=== PATIENT | male | born 1955 | race Caucasian/White ===

== ENCOUNTER 2021-02-09 13:49 | Emergency (ER) | payer MEDICARE, OTHER, MEDICAID, SELFPAY ==
[2021-02-09] VITALS (19 sets, daily range): BP systolic 138–154; BP diastolic 79–98; PULSE 61–100; RESP 12–39; TEMP 36.9; O2SAT 97–100; BMI 21.9
--- NOTE | 2021-02-09 14:07 | DI.RAD.S_ITS ---
PROCEDURE: XR CHEST 1V INDICATIONS: failure TECHNIQUE: One view of the chest was acquired. COMPARISON: [facility], , CHEST 2 VIEW, 06/21/2016, 9:46. FINDINGS: Exam is extremely limited given patient positioning. Surgical changes and devices: Postsurgical changes of multiple right-sided ribs. Overlying EKG wires Lungs and pleura: There is slight hypoinflation. Within limits of this exam there is no focal consolidation, pneumothorax, or pleural effusion. Bibasilar atelectasis. Mediastinum: Mediastinal contours appear normal. Heart size is normal. Bones and chest wall: No suspicious bony lesions. Postsurgical changes of the ribs along with multiple remote right-sided rib fractures. Overlying soft tissues appear unremarkable. IMPRESSION: Limited exam. Basilar atelectasis with low lung volumes within limits of this exam. Dictated by: Oni Contreras D.O. on 02/09/2021 at 13:25 Approved by: Oni Contreras D.O. on 02/09/2021 at 13:27
--- NOTE | 2021-02-09 14:22 | DI.CT.S_ITS ---
PROCEDURE: CT HEAD/BRAIN WO CON INDICATIONS: fall Thursday TECHNIQUE: Noncontrast 4.5 mm thick angled axial sections acquired from the foramen magnum to the vertex, with coronal and sagittal reformats. For radiation dose reduction, the following was used: automated exposure control, adjustment of mA and/or kV according to patient size. COMPARISON: [facility], CT, CT CERVICAL SPINE WO CON, 02/09/2021, 14:27. [facility], CT, CT HEAD WITHOUT CONTRAST, 04/05/2018, 10:15. [facility], CT, CT CERVICAL SPINE WITHOUT CONTRAST, 04/05/2018, 10:15. [facility], CT, HEAD WITHOUT CONTRAST, 01/14/2008, 22:38. FINDINGS: Image quality: Excellent. CSF spaces: Basal cisterns are patent. No extra-axial fluid collections. The ventricles are symmetric in size and shape. Brain: No intracranial bleeds or masses. There is cerebral volume loss for age, with resultant ventricular and sulcal prominence. There are periventricular and deep white matter chronic small vessel ischemic changes. There is intracranial internal carotid artery atherosclerosis. Skull and face: Calvarium and visualized facial bones appear intact, without suspicious lesions. Sinuses: Mild mucosal thickening in the maxillary sinuses with polyp versus mucous retention cysts of the right maxillary sinus. Fracture of C1 is incompletely noted on this examination. IMPRESSION: Findings most consistent with cerebral volume loss and cycle of microvascular ischemic changes without evidence of an acute intracranial hemorrhage or transcortical infarction. C1 fracture incompletely evaluated on this examination. Please see same-day CT cervical spine for findings. Dictated by: Oni Contreras D.O. on 02/09/2021 at 14:00 Approved by: Oni Contreras D.O. on 02/09/2021 at 14:04
--- NOTE | 2021-02-09 14:22 | DI.CT.S_ITS ---
PROCEDURE: CT CERVICAL SPINE WO CON INDICATIONS: fall Thursday TECHNIQUE: Noncontrast 3 mm thick sections acquired from the skull base to the T4 level. Sagittal and coronal reformats were then constructed. For radiation dose reduction, the following was used: automated exposure control, adjustment of mA and/or kV according to patient size. COMPARISON: [facility], CT, C-SPINE WITHOUT CONTRAST, 01/14/2008, 22:39. [facility], CT, CT CERVICAL SPINE WITHOUT CONTRAST, 04/05/2018, 10:15. FINDINGS: Image quality: Somewhat limited given positioning of patient. Bones: There is fracturing of the atlas. This includes fractures through the anterior and posterior arch. There is lateral displacement of the right side of the arch by approximately 9 millimeters. The left arch is intact. In addition there is a minimally displaced right condylar fracture. The atlantoaxial interval remains within normal limits. Mildly displaced transverse process fractures of the left transverse processes of C7, T1, T2, and T3. Minimally displaced fracture of the posterior 1st rib as well as the lateral aspect of the left 3rd rib. Multiple remote right-sided rib fractures. Multilevel degenerative changes of the cervical spine are noted throughout worse at C5-C6 and C6-C7 where there is at least mild spinal canal stenosis and mild to moderate neural foraminal stenosis at these levels. Soft tissues: Prevertebral soft tissues are normal in thickness. No paravertebral hematomas. No apical pneumothoraces. Small bilateral pleural effusions. IMPRESSION: Displaced fracturing of the atlas (Jaylen Burst) with displaced fractures of the anterior and posterior arch. There is approximately 9 millimeters of lateral displacement. The atlantoaxial interval is maintained. Mildly displaced fracture of the right occipital condyle (Type 1). Recommend neuro surgical evaluation. Mildly displaced transverse process fractures on the left from C7 through T3. Mildly displaced posterior rib fractures of the 1st rib on the left as well as the lateral aspect of the left 3rd rib. Consider dedicated CTA of the chest to exclude internal injury. Findings discussed with the ordering provider Dr. Abhinav Macias by Dr. Oni Contreras at approximately 1410 hours [place] Standard time on 02/09/2021. Dictated by: Oni Contreras D.O. on 02/09/2021 at 14:04 Approved by: Oni Contreras D.O. on 02/09/2021 at 14:21
--- NOTE | 2021-02-09 14:28 | ED_ITS ---
HPI - Weakness General Chief complaint: Fall Stated complaint: Failure to thrive, fall Time Seen by Provider: 02/09/21 14:06 Source: patient and EMS Mode of arrival: EMS Limitations: no limitations History of Present Illness HPI Narrative: 65M smoker with history of alcohol abuse and SVT present by EMS after multiple days of weakness. He suffered a ground level fall a few days ago (exact date is a bit unclear) and struck his forehead and developed some neck pain. Since then he has been rather immobile at home and per people who live with him has not been eating or drinking and has become weak. His living sit uation is tenuous and medics report a very unkempt location with no ability for the patient to receive any additional help. He denies any loss of consciousness, nausea or vomiting. He does not take any blood thinners. Patient activated as modified trauma due to fall > 65 and suspected injury. Patient is otherwise well and free of complaint. He denies any precipitating dizziness, weakness or lightheadedness. He denies any blurred vision, numbness, tingling or weakness. He has no trouble controlling bowel or bladder. Related Data Home Medications Medication Instructions Recorded Confirmed No Known Home Medications 02/09/21 02/09/21 Allergies Allergy/AdvReac Type Severity Reaction Status Date / Time No Known Drug Allergies Allergy Verified 02/09/21 16:11 Review of Systems Constitutional Constitutional: Denies chills, Denies fatigue, Denies fever(s), Denies frequent falls, Denies lethargy and Reports weakness Eyes Eyes: Denies change in vision, Denies eye discharge, Denies irritation and Denies loss of vision ENT Ears, Nose, Mouth, and Throat: Denies change in voice, Denies dizziness, Reports neck pain, Denies sore throat and Denies throat swelling Cardiovascular Cardiovascular: Denies chest pain, Denies irregular heart rhythm, Denies lightheadedness, Denies palpitations, Denies dyspnea, Denies dyspnea on exertion and Denies orthopnea Respiratory Respiratory: Denies cough, Denies dyspnea, Denies dyspnea on exertion and Denies wheezing Gastrointestinal Gastrointestinal: Denies abdominal pain, Denies change in bowel habits, Denies diarrhea, Denies nausea and Denies vomiting Musculoskeletal Musculoskeletal: Reports neck pain and Denies numbness Integumentary/Breasts Skin/Breast: Denies pruritus, Denies erythema, Denies rash and Denies wounds Neurologic Neurologic: Denies behavioral changes, Denies confusion, Denies dizziness, Denies frequent falls, Denies loss of vision, Denies numbness and Reports weakness Psychiatric Psychiatric: Denies anxiety, Denies behavioral changes, Denies confusion, Denies depression, Denies homicidal ideation and Denies suicidal ideation Endocrine Endocrine: Denies fatigue, Denies flushing and Denies palpitations Hematologic/Lymphatic Hematologic/Lymphatic: Denies easy bruising Allergic/Immunologic Allergic/Immunologic: Denies urticaria, Denies throat swelling and Denies wheezing Patient History Social History Smoking Status: Current every day smoker Smoking Status: Current every day smoker alcohol intake frequency: a few times a week Substance Use Type: does not use Exam Narrative Exam Narrative: GENERAL: [65] year old patient appears stated age. Well- nourished, well-developed patient, in mild distress. GCS 15 HEAD: Superficial, healing laceration mid forehead at the hairline. No evidence of depressed skull fracture EYES: Pupils equal round and reactive. No hyphema, extraoccular motions intact. No scleral icterus. No injection or drainage. ENT: Nose without bleeding, purulent drainage. Throat without erythema, tonsillar hypertrophy or exudate. Airway patent. NECK: Trachea midline. Midline neck pain and tenderness upper cervical spine, no step-offs or crepitance. CARDIOVASCULAR: Regular rate and rhythm without murmurs, gallops, or rubs. RESPIRATORY: Clear to auscultation. Breath sounds equal bilaterally. No wheezes, rales, or rhonchi. GASTROINTESTINAL: Abdomen soft, non-tender, nondistended. EXTREMITIES: No edema or joint tenderness. BACK: Nontender without deformity or crepitance. No flank tenderness. NEURO: AOx3. No extremity numbness, weakness or tenderness. Equal case specialist strength. No saddle anesthesia. SKIN: No rash or erythema of visible areas Initial Vital Signs Initial Vital Signs: Vital Signs Temperature 98.4 F 02/09/21 14:13 Pulse Rate 90 02/09/21 14:13 Respiratory Rate 16 02/09/21 14:13 Blood Pressure 144/95 H 02/09/21 14:13 Pulse Oximetry 97 02/09/21 14:13 Course Orders Ordered: ED Orders 02/09/21 16:58 Urinalysis and Microscopic Stat Discontinued Medications Sodium Chloride (Normal Saline 0.9%) 1,000 mls @ 1,000 mls/hr IV BOLUS ONE Stop: 02/09/21 15:05 Last Infusion: 02/09/21 16:05 Dose: 0 mls/hr Documented by: Admin: 02/09/21 14:49 Dose: 1,000 mls/hr Documented by: VISH Potassium Chloride 40 meq/ (Sodium Chloride) 520 mls @ 130 mls/hr IV NOW ONE Stop: 02/09/21 20:09 Last Infusion: 02/09/21 19:03 Dose: 130 mls/hr Documented by: VISH Cosigned by: BIBI Admin: 02/09/21 17:00 Dose: 130 mls/hr Documented by: ANGELA Cosigned by: VISH Consultations Consultation #1: [id number] - call to [facility], images already pushed. COVID PCR pending. Patient aware of pending transfer 1608 - call back from [facility] Transfer. Connecting with Trauma Attending (Ольга). Images still not merged.) Accepts patient, ok to call for transfer 1615 - working on transport. ALS ground contacted (arrival 2029) Vital Signs Vital signs: Vital Signs - 8 hr 02/09/21 16:30 02/09/21 16:45 02/09/21 17:00 Pulse Rate 87 96 H 71 Respiratory Rate 25 H 39 H 21 Blood Pressure 147/94 H 140/81 147/94 H Pulse Oximetry 100 99 02/09/21 17:15 02/09/21 17:30 02/09/21 17:31 Pulse Rate 73 100 H 96 H Respiratory Rate 15 23 29 H Blood Pressure 141/87 H 142/90 H Pulse Oximetry 99 98 97 02/09/21 17:45 02/09/21 18:00 02/09/21 18:15 Pulse Rate 68 68 74 Respiratory Rate 13 12 13 Blood Pressure 151/92 H 146/88 H 138/79 Pulse Oximetry 99 99 99 MDM - Weakness Lab Data Result diagrams: 02/09/21 14:50 02/09/21 14:50 Labs: Lab Results 02/09/21 02/09/21 02/09/21 Range/Units 14:30 14:50 14:50 WBC 10.4 (4.5-11.0) X10^3/uL RBC 4.51 (4.5-5.9) X10^6/uL Hgb 14.4 (13.5-17.5) g/dL Hct 44.2 (41-53) % MCV 97.9 (80-100) fL MCH 31.9 (26-34) PG MCHC 32.6 (30-36) % RDW 15.6 H (11.6-14.8) % Plt Count 239 (150-400) X10^3/uL Neut % (Auto) 72.7 (50-75) % Lymph % (Auto) 14.4 L (25-40) % [place] % (Auto) 10.7 (3-14) % Eos % (Auto) 1.7 L (2-4) % Baso % (Auto) 0.5 (0-2) % Neut # (Auto) 7500 H (3051-6601) /uL Lymph # (Auto) 1500 (2381-2701) /uL [place] # (Auto) 1100 H (0-900) /uL Eos # (Auto) 200 (0-450) /uL Baso # (Auto) 100 (0-100) /uL PT (10.1-12.7) SECONDS INR (0.9-1.3) Sodium 133 L (137-145) mmol/L Potassium 3.2 L (3.4-5.1) mmol/L Chloride 99 (98-107) mmol/L Carbon Dioxide 27 (22-32) mmol/L BUN 18 (9-20) mg/dL Creatinine 0.60 L (0.66-1.25) mg/dL Estimated GFR > 60.0 (>60) mL/min BUN/Creatinine Ratio 30.0 H (6-22) Glucose 134 H (80-110) mg/dL Lactate (0.7-2.1) mmol/L Calcium 9.2 (8.4-10.2) mg/dL Magnesium 1.5 L (1.6-2.3) mg/dL Total Bilirubin 1.0 (0.2-1.3) mg/dL AST 38 (17-59) IU/L ALT 23 (<50) IU/L Alkaline Phosphatase 77 (38-126) U/L Total Creatine Kinase (55-170) U/L CK-MB (CK-2) CK-MB (CK-2) Rel Index Troponin I (0.01-0.034) ng/mL NT-Pro-B Natriuret Pep 391 H (<125) pg/mL Total Protein 6.6 (6.3-8.2) g/dL Albumin 3.4 L (3.5-5.0) g/dL Globulin 3.2 (1.7-4.1) g/dL Albumin/Globulin Ratio 1.1 (1.0-2.8) Urine Color Urine Appearance Urine pH (4.5-8.0) Ur Specific [place] (1.000-1.035) Urine Protein (Negative) Urine Glucose (UA) (Negative) g/dL Urine Ketones (NEGATIVE) Urine Occult Blood (Negative) Urine Nitrate (Negative) Urine Bilirubin (NEGATIVE) Urine Urobilinogen (0.2) E.U./dL Ur Leukocyte Esterase (NEGATIVE) Urine RBC (0-5/HPF) Urine WBC (0-5/HPF) Ur Squamous Epith Cells (0-5/HPF) Calcium Oxalate Crystal Urine Bacteria (None) Ur Culture Indicated? SARS-CoV-2 (PCR) Negative (Negative) 02/09/21 02/09/21 02/09/21 Range/Units 14:50 14:50 14:50 WBC (4.5-11.0) X10^3/uL RBC (4.5-5.9) X10^6/uL Hgb (13.5-17.5) g/dL Hct (41-53) % MCV (80-100) fL MCH (26-34) PG MCHC (30-36) % RDW (11.6-14.8) % Plt Count (150-400) X10^3/uL Neut % (Auto) (50-75) % Lymph % (Auto) (25-40) % [place] % (Auto) (3-14) % Eos % (Auto) (2-4) % Baso % (Auto) (0-2) % Neut # (Auto) (1672-3683) /uL Lymph # (Auto) (9670-2590) /uL [place] # (Auto) (0-900) /uL Eos # (Auto) (0-450) /uL Baso # (Auto) (0-100) /uL PT 11.5 (10.1-12.7) SECONDS INR 1.0 (0.9-1.3) Sodium (137-145) mmol/L Potassium (3.4-5.1) mmol/L Chloride (98-107) mmol/L Carbon Dioxide (22-32) mmol/L BUN (9-20) mg/dL Creatinine (0.66-1.25) mg/dL Estimated GFR (>60) mL/min BUN/Creatinine Ratio (6-22) Glucose (80-110) mg/dL Lactate 1.9 (0.7-2.1) mmol/L Calcium (8.4-10.2) mg/dL Magnesium (1.6-2.3) mg/dL Total Bilirubin (0.2-1.3) mg/dL AST (17-59) IU/L ALT (<50) IU/L Alkaline Phosphatase (38-126) U/L Total Creatine Kinase 81 (55-170) U/L CK-MB (CK-2) TNP CK-MB (CK-2) Rel Index TNP Troponin I < 0.012 (0.01-0.034) ng/mL NT-Pro-B Natriuret Pep (<125) pg/mL Total Protein (6.3-8.2) g/dL Albumin (3.5-5.0) g/dL Globulin (1.7-4.1) g/dL Albumin/Globulin Ratio (1.0-2.8) Urine Color Urine Appearance Urine pH (4.5-8.0) Ur Specific [place] (1.000-1.035) Urine Protein (Negative) Urine Glucose (UA) (Negative) g/dL Urine Ketones (NEGATIVE) Urine Occult Blood (Negative) Urine Nitrate (Negative) Urine Bilirubin (NEGATIVE) Urine Urobilinogen (0.2) E.U./dL Ur Leukocyte Esterase (NEGATIVE) Urine RBC (0-5/HPF) Urine WBC (0-5/HPF) Ur Squamous Epith Cells (0-5/HPF) Calcium Oxalate Crystal Urine Bacteria (None) Ur Culture Indicated? SARS-CoV-2 (PCR) (Negative) 02/09/21 Range/Units 16:58 WBC (4.5-11.0) X10^3/uL RBC (4.5-5.9) X10^6/uL Hgb (13.5-17.5) g/dL Hct (41-53) % MCV (80-100) fL MCH (26-34) PG MCHC (30-36) % RDW (11.6-14.8) % Plt Count (150-400) X10^3/uL Neut % (Auto) (50-75) % Lymph % (Auto) (25-40) % [place] % (Auto) (3-14) % Eos % (Auto) (2-4) % Baso % (Auto) (0-2) % Neut # (Auto) (9317-7635) /uL Lymph # (Auto) (6974-5949) /uL [place] # (Auto) (0-900) /uL Eos # (Auto) (0-450) /uL Baso # (Auto) (0-100) /uL PT (10.1-12.7) SECONDS INR (0.9-1.3) Sodium (137-145) mmol/L Potassium (3.4-5.1) mmol/L Chloride (98-107) mmol/L Carbon Dioxide (22-32) mmol/L BUN (9-20) mg/dL Creatinine (0.66-1.25) mg/dL Estimated GFR (>60) mL/min BUN/Creatinine Ratio (6-22) Glucose (80-110) mg/dL Lactate (0.7-2.1) mmol/L Calcium (8.4-10.2) mg/dL Magnesium (1.6-2.3) mg/dL Total Bilirubin (0.2-1.3) mg/dL AST (17-59) IU/L ALT (<50) IU/L Alkaline Phosphatase (38-126) U/L Total Creatine Kinase (55-170) U/L CK-MB (CK-2) CK-MB (CK-2) Rel Index Troponin I (0.01-0.034) ng/mL NT-Pro-B Natriuret Pep (<125) pg/mL Total Protein (6.3-8.2) g/dL Albumin (3.5-5.0) g/dL Globulin (1.7-4.1) g/dL Albumin/Globulin Ratio (1.0-2.8) Urine Color [place] Urine Appearance Clear Urine pH 6.5 (4.5-8.0) Ur Specific [place] 1.015 (1.000-1.035) Urine Protein Negative (Negative) Urine Glucose (UA) Trace H (Negative) g/dL Urine Ketones Negative (NEGATIVE) Urine Occult Blood Negative (Negative) Urine Nitrate Negative (Negative) Urine Bilirubin Negative (NEGATIVE) Urine Urobilinogen >=8.0 (0.2) E.U./dL Ur Leukocyte Esterase Negative (NEGATIVE) Urine RBC None seen (0-5/HPF) Urine WBC 0-1/hpf (0-5/HPF) Ur Squamous Epith Cells 0-1 /hpf (0-5/HPF) Calcium Oxalate Crystal Occasional H Urine Bacteria None seen (None) Ur Culture Indicated? Cult not indicated SARS-CoV-2 (PCR) (Negative) Critical Care Time Critical Care Time Critical Care Time: Yes Total Critical Care Time: 30 Attestation: The high probability of a clinically significant, sudden or life threatening de terioration of the [[place]] system(s) required my full and direct attention, intervention and personal management. The aggregate critical care time was [30] minutes. This time is in addition to time spent performing reported procedures but includes the following: [x] Data Review and interpretation [x] Patient assessment and monitoring of vital signs [x] Documentation [x] Medication orders and management Discharge Plan Departure Patient Disposition: [facility] Clinical Impression: Fracture of transverse process of spine without spinal cord lesion, Acute hypokalemia C1 cervical fracture Qualifiers: Encounter type: initial encounter Fracture type: closed Fracture morphology: unspecified fracture morphology Fracture alignment: displaced Qualified Code(s): S12.000A - Unspecified displaced fracture of first cervical vertebra, initial encounter for closed fracture Prescriptions: No Action No Known Home Medications RF: 0 Referrals: Angeline Garza MD [Primary Care Provider] -
[2021-02-09] MEDS: SODIUM CHLORIDE 0.9% 1,000 ML 1000 ML IV (14:49)
--- NOTE | 2021-02-09 14:49 | PC.NURSE ---
Pt unable to quantify amount of pain. when asked pt states all over. Lives on a compund with multiple people who called 911 after pt has not eaten or drank anything in days. reports he fell 5 days ago onto concrete and hit his head. noted half dollar size healing scab on frontal head/hairline. Noted to be unkept, odorous and soiled. incontinence care provided. Adeuate ROM of upper extremities. Dr Macias made aware of neck pain and pts inability to tolerate CCollar. Placed in a thick towel roll to stabilize head and neck. IV placed and fluids infusing. Labs drawn and EKG obtained. Awaiting results of CT and further orders.
[2021-02-09 15:10] LABS: Add Manual Diff / Slide Review NO; Basophils Absolute Auto 100 /uL (0-100); Basophils Percent Auto 0.5 % (0-2); Eosinophils Absolute Auto 200 /uL (0-450); Eosinophils Percent Auto 1.7 % (2-4); Hematocrit 44.2 % (41-53); Hemoglobin 14.4 g/dL (13.5-17.5); Lymphocytes Absolute Auto 1500 /uL (1100-4500); Lymphocytes Percent Auto 14.4 % (25-40); Mean Corpuscular HGB Conc 32.6 % (30-36); Mean Corpuscular Hemoglobin 31.9 PG (26-34); Mean Corpuscular Volume 97.9 fL (80-100); Monocytes Absolute Auto 1100 /uL (0-900); Monocytes Percent Auto 10.7 % (3-14); Neutrophils Absolute Auto 7500 /uL (1500-7000); Neutrophils Percent Auto 72.7 % (50-75); Platelet Count 239 X10^3/uL (150-400); Red Blood Cell Count 4.51 X10^6/uL (4.5-5.9); Red Cell Distribution Width 15.6 % (11.6-14.8); White Blood Cell Count 10.4 X10^3/uL (4.5-11.0)
[2021-02-09 15:14] LABS: COVID19 - ADMIT (NP swab/PCR) Negative (Negative)
[2021-02-09 15:16] LABS: Prothrombin Time 11.5 SECONDS (10.1-12.7)
[2021-02-09 15:24] LABS: Alanine Aminotransferase 23 IU/L (<50); Albumin 3.4 g/dL (3.5-5.0); Albumin Globulin Ratio 1.1 (1.0-2.8); Alkaline Phosphatase 77 U/L (38-126); Aspartate Aminotransferase 38 IU/L (17-59); Blood Urea Nitrogen 18 mg/dL (9-20); Calcium 9.2 mg/dL (8.4-10.2); Carbon Dioxide 27 mmol/L (22-32); Chloride 99 mmol/L (98-107); Estimated Glomerular Filt Rate > 60.0 mL/min (>60); Globulin 3.2 g/dL (1.7-4.1); Glucose 134 mg/dL (80-110); HEMOLYSIS < 15 (0-50); Lactate (Lactic Acid) 1.9 mmol/L (0.7-2.1); Magnesium 1.5 mg/dL (1.6-2.3); Potassium 3.2 mmol/L (3.4-5.1); Sodium 133 mmol/L (137-145); Total Protein 6.6 g/dL (6.3-8.2)
[2021-02-09 15:33] LABS: NT-proBNP (BNP-Adult 18+) 391 pg/mL (<125)
[2021-02-09 15:49] LABS: Creatine Kinase 81 U/L (55-170)
[2021-02-09 16:02] LABS: Troponin I < 0.012 ng/mL (0.01-0.034)
[2021-02-09] MEDS: LIDOCAINE JELLY 2% 5 ML 5 APPLIC TOP (16:06)
--- NOTE | 2021-02-09 16:07 | PC.NURSE ---
Pt placed in aspen collar. tolerating well. 1L NS infused. Duarte placed. NAD
[2021-02-09] MEDS: POTASSIUM CHLORIDE 40 MEQ in SODIUM CHLORIDE 0.9% 500 ML 130 ML IV (17:00)
[2021-02-09 17:29] LABS: Bacteria Urine None Seen; RBC Urine None Seen (0-5/HPF)
[2021-02-09 17:35] LABS: Appearance Urine UA CLEAR; Bilirubin Urine UA NEGATIVE (NEGATIVE); Glucose Urine UA TRACE g/dL (Negative); Ketones Urine UA NEGATIVE (NEGATIVE); Leukocyte Esterase Urine UA NEGATIVE (NEGATIVE); Nitrite Urine UA NEGATIVE (Negative); Occult Blood Urine UA NEGATIVE (Negative); Protein Urine UA NEGATIVE (Negative); Specific Gravity Urine UA 1.015 (1.000-1.035); Urobilinogen Urine UA >=8.0 E.U./dL (0.2); pH Urine UA 6.5 (4.5-8.0)
[2021-02-09 17:42] LABS: Color Urine UA Amber
[2021-02-09 17:51] LABS: Squamous Epithelial Cell Urine 0-1 /HPF (0-5/HPF); WBC Urine 0-1/HPF (0-5/HPF)
[2021-02-09 17:52] LABS: Calcium Oxalate Crystals Urine Occasional; Culture Indicated Urine Cult Not Indicated
--- NOTE | 2021-02-09 18:59 | PC.NURSE ---
Pt pulled out LAC IV line with K+ infusing. infusion stopped. pt pulled off Homer collar. placed back on pt with assistance of DONALD RN. Pt states he thought he was going to another hospital and was trying to get dressed. Report given to DONALD PELAEZ. Pt in NAD. CSpine maintained and pt transferred to transport stretcher without issue.
== END 2021-02-09 19:06 | disposition short-term general hospital (02) ==
PROVIDERS: Emergency Provider Emergency Medicine; Family Provider Family Medicine; PCP Family Medicine
DX: S12.000A Unspecified displaced fracture of first cervical vertebra, initial encounter for closed fracture (principal); S12.9XXA Fracture of neck, unspecified, initial encounter; M54.2 Cervicalgia; E87.6 Hypokalemia; Z20.822 Contact with and (suspected) exposure to COVID-19; W19.XXXA Unspecified fall, initial encounter
CPT/HCPCS: 51701; 70450; 71045; 72125; 80053; 81001; 82550; 83605; 83735; 83880; 84484; 85025; 85610; 87635; 93005; 96361; 96365; 96366; 99284; 99291; C9803; G0390; J3480

== ENCOUNTER 2021-02-26 19:14 | Emergency (ER) | payer MEDICARE, OTHER, MEDICAID, SELFPAY ==
[2021-02-26 19:48] VITALS: BP 123/77; PULSE 95; RESP 17; TEMP 37.2; O2SAT 100; BMI 25.1
--- NOTE | 2021-02-26 20:43 | PC.NURSE ---
Can't return to rehab tonight. It would have to be addressed in AM per facility
[2021-02-26 20:57] VITALS: PULSE 88; O2SAT 98
[2021-02-26 21:00] VITALS: PULSE 78; O2SAT 98
--- NOTE | 2021-02-26 21:03 | PC.NURSE ---
Patient's family member provided the following details: patient discharged himself from the rehab facility and somehow got back to his house, but family feels he still needs rehab help. He tried to get patient readmitted to rehab, but they were told that there was no ability to admit him today but possibly tomorrow. Patient endorses mild pain.
[2021-02-26 21:30] VITALS: PULSE 90; O2SAT 97
--- NOTE | 2021-02-26 21:52 | ED.NECK ---
HPI - Neck Pain/Injury General Chief Complaint: Neck Pain/Injury Stated Complaint: PAIN IN THE NECK Time Seen by Provider: 02/26/21 21:52 Mode of arrival: Wheelchair History of Present Illness HPI Narrative: 65-year-old gentleman with a history of recent C1 fracture after of fall while he was intoxicated and transfer to [facility] for further evaluation. He is currently in a Wy[place]ena collar and has been in rehab at [facility]. Reportedly, today he decided he ?had to go to the [facility] because the world runs on money?. prison staff asked him to not go and he chose to leave against medical advice [facility] the [facility] and went to the bank and then went home. Family friend realized he was home came to check on him and was concerned that he was not able to care for himself as well as the unlivable conditions described at his house. Sg himself is unconcerned with his home living situation and feels that his home is perfectly appropriate. The friend tried to help him return to [facility] where he was informed that he had discharged himself and no longer had a bed available to him. His friend brings him to the emergency department to have him readmitted to [facility]. In the emergency department he is disheveled and somewhat cantankerous with the Wyocena collar in place. Does seem to be making poor but rational decisions and not acutely ill. Related Data Home Medications Medication Instructions Recorded Confirmed No Known Home Medications 02/09/21 02/09/21 Allergies Allergy/AdvReac Type Severity Reaction Status Date / Time No Known Drug Allergies Allergy Verified 02/09/21 16:11 Review of Systems Review of Systems Narrative: Remainder of complete review of systems is otherwise unremarkable except for that included in the HPI. Patient History Medical History Alcohol abuse Fracture of cervical spine without lesion of spinal cord SVT (supraventricular tachycardia) Unable to care for self Social History Smoking Status: Current every day smoker Smoking Status: Current every day smoker alcohol intake frequency: a few times a week Substance Use Type: marijuana Exam Narrative Exam Narrative: General: Disheveled, in an Wyocena collar, no acute distress Respiratory: Able to speak in full sentences, no obvious respiratory distress Skin: No obvious rashes, warm and dry Neurologic: Grossly intact no obvious asymmetries or abnormalities, he is able to walk unassisted Psych: Poor insight but fluent speech and no obvious psychotic behaviors or hallucinations Initial Vital Signs Initial Vital Signs: Vital Signs Temperature 98.9 F 02/26/21 19:48 Pulse Rate 95 H 02/26/21 19:48 Respiratory Rate 17 02/26/21 19:48 Blood Pressure 123/77 02/26/21 19:48 Pulse Oximetry 100 02/26/21 19:48 Course Vital Signs Vital signs: Vital Signs - 8 hr 02/26/21 19:48 Temperature 98.9 F Pulse Rate 95 H Respiratory Rate 17 Blood Pressure 123/77 Pulse Oximetry 100 MDM - Neck Pain/Injury Medical Records Attestation: I reviewed the patient's medical records. [facility] Narrative Medical decision making narrative: 65-year-old gentleman with a history of alcohol use disorder, declining overall functional ability to care for himself live at home with reportedly significantly disheveled home environment. Recent C1 fracture and discharged to jail facility from which he discharged himself earlier today. At this point in the middle of the night we do not have access to social work and sound the staff been very clear that he chose to discharge himself and may not return without going through the readmitting process. He does have a place to live and was able to get there by himself this afternoon after going to the bank. His friend can help him get home and will contact his son tomorrow. Encouraged them to talk to sound the staff available during the day to see what arrangements can be made. While I believe is decisions are ill-advised I believe he is cognitively aware enough to be making those decisions himself. He is discharged to home Discharge Plan Departure Patient Disposition: Home Clinical Impression: Unable to care for self, Alcohol abuse Fracture of cervical spine without lesion of spinal cord Qualifiers: Encounter type: subsequent encounter Qualified Code(s): S12.9XXD - Fracture of neck, unspecified, subsequent encounter Activity Restrictions/Additional Instructions: I am sorry that the events of today have transpired as they did Unfortunately, when you choose to leave the jail facility against their advice options for returning are limited. I would encourage you to contact her son and see if he can help with living situation at home. I would also encourage you to call the jail facility tomorrow to see what needs to be done to return to your rehabilitation care. I wish you the best Prescriptions: No Action No Known Home Medications RF: 0 Referrals: Angeline Garza MD [Primary Care Provider] -
== END 2021-02-26 23:00 | disposition home or self-care (01) ==
PROVIDERS: Emergency Provider Emergency Medicine; Family Provider Family Medicine; PCP Family Medicine
DX: S12.9XXD Fracture of neck, unspecified, subsequent encounter (principal); F10.10 Alcohol abuse, uncomplicated
CPT/HCPCS: 99281